=== PATIENT | female | born 1985 | race Caucasian/White ===

== ENCOUNTER 2021-01-29 15:32 | Outpatient (CLI) | payer OTHER | END 2021-01-29 15:33 | disposition home or self-care (01) | LOC: CSHMRI 15:32 | PROVIDERS: ATTEND Specialist | DX: M51.17 Intervertebral disc disorders with radiculopathy, lumbosacral region (principal); M47.816 Spondylosis without myelopathy or radiculopathy, lumbar region | CPT/HCPCS: 72148 ==

== ENCOUNTER 2022-11-15 10:35 | Outpatient (CLI) | payer BC | END 2022-11-15 10:36 | disposition home or self-care (01) | LOC: CSHRAD 10:35 | PROVIDERS: ATTEND Family Medicine | DX: R07.89 Other chest pain (principal) | CPT/HCPCS: 71046 ==

== ENCOUNTER 2024-07-11 12:44 | Outpatient (CLI) | payer BC | END 2024-07-11 12:45 | disposition home or self-care (01) | LOC: CSHCT 12:44 | PROVIDERS: ATTEND Urology | DX: N20.0 Calculus of kidney (principal); R91.1 Solitary pulmonary nodule | CPT/HCPCS: 74176 ==